=== PATIENT | male | born 1970 | race Caucasian/White ===

== ENCOUNTER 2019-01-02 21:17 | Emergency (ER) | payer OTHER ==
[~2019-01-02] VITALS: Ht 167.6 cm; Wt 102.3 kg
[~2019-01-02 21:17] MED LIST: CIPROFLOXACN500 MG PO; EFFEXOR37.5 MG PO; LEVAQUIN500 MG PO; LEVOTHYROXIN125 MCG PO; LOSARTAN POTASS50 MG PO; MEDDOSEPAK PO; MOTRIN800 MG PO; PERCOCET 5/325M1 TAB PO; PREDNISONE10 MG PO; TAM75CAP PO; VENTOLIN HF1 IN
[2019-01-02 22:16] LABS: HEMATOCRIT 41.5 % (39.0-50.0); HEMOGLOBIN 14.5 g/dl (14.0-18.0); IMMATURE GRANULOCYTES 0.5 % (0.0-5.0); MEAN CELL VOLUME 88.9 fL CALC (80.0-100.0); MEAN CORPUSCULAR HGB CONC 34.9 g/L CALC (32.0-36.0); RED BLOOD COUNT 4.67 mill/uL (4.70-6.10); RED CELL DISTRI WIDTH 12.8 % (11.5-15.5)
[2019-01-02 22:25] LABS: ALBUMIN 4.4 g/dL (3.2-5.0); ALKALINE PHOSPHATASE 57 u/l (38-126); ANION GAP 14 (6-22 (CALC)); BILIRUBIN, TOTAL 0.6 mg/dL (0.0-1.4); BUN 17 mg/dL (9-20); BUN/CREATININE RATIO 18 (12-20 (CALC)); CARBON DIOXIDE 26 mmol/l (22-30); CHLORIDE 104 mmol/l (95-108); CREATININE 0.9 mg/dL (0.7-1.3); GFR > 60 ML/MIN (>=60 (CALC)); GFR FOR AFR.AMER. > 60 ML/MIN (>=60 (CALC)); POTASSIUM 3.6 mmol/l (3.5-5.1); SGOT/AST 47 u/l (17-59); SODIUM 140 mmol/l (137-146); TOTAL PROTEIN 7.6 g/dL (6.3-8.2)
[2019-01-02 22:38] LABS: MYOGLOBIN 69 ng/mL (0 - 121)
[2019-01-02 23:20] LABS: URINE BILIRUBIN - DIPSTICK NEGATIVE (NEGATIVE); URINE BLOOD DIPSTICK NEGATIVE (NEGATIVE); URINE COLOR YELLOW; URINE GLUCOSE - DIPSTICK NEGATIVE (NEGATIVE); URINE KETONE NEGATIVE (NEGATIVE); URINE LEUK ESTERASE NEGATIVE (NEGATIVE); URINE NITRITE - DIPSTICK NEGATIVE (Negative); URINE PH 5.5 (4.5-8.0); URINE PROTEIN - DIPSTICK NEGATIVE (NEG-TRACE)
[2019-01-02 23:22] LABS: BARBITURATES NEGATIVE (NEGATIVE); COCAINE NEGATIVE (NEGATIVE); METHADONE NEGATIVE (NEGATIVE); OXCYCODONE NEGATIVE (NEGATIVE); TETRAHYDROCANNABIONOL NEGATIVE (NEGATIVE); TRICYLIC ANTIDEPRESSANTS NEGATIVE (NEGATIVE)
[2019-01-02 23:30] VITALS: BP 114/75
== END 2019-01-02 23:45 | disposition home or self-care (01) | DRG 310 ==
LOC: ED 21:17
PROVIDERS: Emergency Medicine
DX: R00.2 Palpitations (principal); R07.9 Chest pain, unspecified; E03.9 Hypothyroidism, unspecified; I10 Essential (primary) hypertension

== ENCOUNTER 2019-12-02 17:04 | Inpatient (IN) | payer OTHER ==
[~2019-12-02] VITALS: Ht 167.6 cm; Wt 99.3 kg
[~2019-12-02 17:04] MED LIST changes: +ASPIRIN LOW DOS81 M2 PO; +LEVOTHYROXIN175 MC1 PO; +SYNTHROID175 MCG PO
--- NOTE | 2019-12-02 17:08 | NUR ---
TO ROOM VIA WHEELCHAIR WITH AT SIDE FOR BEDSIDE TRIAGE
--- NOTE | 2019-12-02 17:30 | NUR ---
PT WITH HOB ELEVATED, REPORTS BODY ACHES, FEVER, COUGH, SHORTNESS OF BREATH, DECREASED SENSATION OF SMELL AND TASTE . MONITOR SHOWS SINUS TACH 120'S RESP 28, 02 89-90% RA. DR RANGEL AT BEDSIDE TO EVALUATE PT. SPOUSE AT BEDSIDE. TWO 20G IV'S STARTED IN BILATERAL AC'S. SPECIMENS OBTAINED AND SENT TO LAB FOR ANALAYSIS. WHEEZING NOTED THROUGHOUT LUNGS, NON PRODUCTIVE COUGH ALSO NOTED AT THIS TIME.
--- NOTE | 2019-12-02 18:00 | NUR ---
URINE OBTAINED AND SENT TO LAB FOR ANALYSIS. PT WITH HOB ELEVATED, IVF INFUSING # 20 LEFT AC, SITE WITHOUT REDNESS, SWELLING. MONITOR CONTINUES TO SHOW SINUS TACH. 02 99% ON 02 AT 2L VIA NC.
[2019-12-02 18:09] LABS: IMMATURE GRANULOCYTES 0.8 % (0.0-5.0); MEAN CELL VOLUME 88.4 fL CALC (80.0-100.0); MEAN CORPUSCULAR HGB 30.4 pG CALC (26.0-32.0); MEAN CORPUSCULAR HGB CONC 34.4 g/dL CAL (32.0-36.0); NEUT# 8.49 thou/uL (1.82-7.42); RED BLOOD COUNT 4.38 mill/uL (4.70-6.10); RED CELL DISTRI WIDTH 12.8 % (11.5-15.5)
[2019-12-02 18:11] LABS: HEMATOCRIT 38.7 % (39.0-50.0); HEMOGLOBIN 13.3 g/dl (14.0-18.0)
[2019-12-02 18:24] LABS: ALBUMIN 3.8 g/dL (3.2-5.0); ALKALINE PHOSPHATASE 55 u/l (38-126); ANION GAP 13 (6-22 (CALC)); BILIRUBIN, TOTAL 1.7 mg/dL (0.0-1.4); BUN 13 mg/dL (9-20); BUN/CREATININE RATIO 12 (12-20 (CALC)); CARBON DIOXIDE 24 mmol/l (22-30); CHLORIDE 101 mmol/l (95-108); CREATININE 1.1 mg/dL (0.7-1.3); GFR > 60 ML/MIN (>=60 (CALC)); GFR FOR AFR.AMER. > 60 ML/MIN (>=60 (CALC)); SGOT/AST 41 u/l (17-59); SODIUM 134 mmol/l (137-146); TOTAL PROTEIN 6.8 g/dL (6.3-8.2)
[2019-12-02 18:29] LABS: ACT PARTIAL THROMBO TIME 34.8 SECONDS (20.0-32.5); INTERNATIONAL NORMALIZED RATIO 1.1 RATIO (0.7-1.3); PROTHROMBIN TIME 11.6 SECONDS (9.0-12.5)
[2019-12-02 18:30] LABS: POTASSIUM 3.7 mmol/l (3.5-5.1)
[2019-12-02 18:35] LABS: MYOGLOBIN 148 ng/mL (0 - 121)
[2019-12-02] MEDS ORDERED: LOPRESSOR 550 MG/TAB PO (18:35)
[2019-12-02 18:36] LABS: URINE BLOOD DIPSTICK NEGATIVE (NEGATIVE); URINE GLUCOSE - DIPSTICK 100 mg/dL (NEGATIVE); URINE KETONE TRACE mg/dL (NEGATIVE); URINE LEUK ESTERASE NEGATIVE (NEGATIVE); URINE NITRITE - DIPSTICK NEGATIVE (Negative); URINE PH 5.5 (4.5-8.0); URINE PROTEIN - DIPSTICK >=300 mg/dL (NEG-TRACE); URINE SPECIFIC GRAVITY 1.025; URINE UROBILINOGEN - DIPSTICK >=8.0 E.U./dL (0.2)
[2019-12-02] MEDS ORDERED: IPRATROPIU0.5 MG/3 M IN (18:37)
[2019-12-02 18:39] LABS: URINE BILIRUBIN - DIPSTICK MODERATE (NEGATIVE); URINE COLOR DK. YELLOW
--- NOTE | 2019-12-02 18:54 | NUR ---
IV ABT. STARTED PER MD ORDER.
--- NOTE | 2019-12-02 19:00 | NUR ---
RECEIVED REPORT FROM DAY SHIFT NURSE, IN ROOM INTRODUCED SELF TO PT. NO C/O AT THIS TIME.
[2019-12-02 19:04] LABS: URINE SQUAMOUS EPITHELIAL CELL FEW EPI/hpf (0-FEW)
[2019-12-02] MEDS ORDERED: LOSARTAN POTASS50 MG PO (19:05)
--- NOTE | 2019-12-02 19:36 | NUR ---
Admission Note Report Given to: ARSALAN ALONSO Transported by: Wheelchair X Stretcher Transported with: X Nurse Transporter X Patent IV X O2 X Fashion Director Location: ICU X MS2
--- NOTE | 2019-12-02 19:40 | NUR ---
PT. TAKEN TO [place] FLOOR VIA STRETCHER, NO C/O.
[2019-12-02 19:47] VITALS: BP 115/72
[2019-12-02 23:43] VITALS: BP 109/65
[2019-12-03 04:20] VITALS: BP 102/59
--- NOTE | 2019-12-03 07:23 | NUR ---
RESIDENT WAS ADMITTED TO UNIT LAST LAST EVENING. ASSESSMENT COMPLETED AND NOTED WHEEZING IN UPPER LUNG PATEL AND SOB ON EXERTION THAT IMPROVED DURING THE NIGHT. PT ON 3LNC AND TOLERATING WELL. MEDICATED FOR ELEVATED TEMPT AND PAIN DURING THE NIGHT AND EFFECTIVE TO DECREASE TEMPT AND EASE MUSCLE ACHES. FLUIDS GIVEN AND PT TOLERATED WELL. UP TO BATHROOM WITH NO ASSIST NEEDED. AT BEDSIDE DURING THE NIGHT. CALL LIGHT WITHIN REACH AND BED IN LOWEST POSITION. WILL CONTINUE TO OBSERVE
[2019-12-03 07:48] VITALS: BP 103/67
--- NOTE | 2019-12-03 07:48 | NUR ---
PT RESTING IN BED, NO SIGNS OF DISTRESS NOTED, RESP EVEN AND UNLABORED. PT ALERT AND ORIENTED X3, DISCUSSED POC, AT BEDSIDE. SKIN INTACT, NO EDEMA. PT C/O GENERALIZED PAIN MEDICATED WITH TYLENOL. ASSESSMENT COMPLETED, CALL LIGHT IN REACH,CONTINUE TO MONITOR.
[2019-12-03 10:45] VITALS: BP 108/60
--- NOTE | 2019-12-03 11:32 | NUR ---
PT MEDICATED PER MAR. NO SIGNS OF DISTRESS NOTED, LUNCH TRAY PROVIDED. CALL LIGHT IN REACH,CONTINUE TO MONITOR.
--- NOTE | 2019-12-03 15:00 | NUR ---
PT RESTING IN BED, NO SIGNS OF DISTRESS NOTED, RESP EVEN AND UNLABORED. PT VOICES NO NEEDS OR COMPLAINTS AT THIS TIME, CALL LIGHT IN REACH,CONTINUE TO MONITOR.
[2019-12-03 15:15] VITALS: BP 107/58
--- NOTE | 2019-12-03 16:57 | NUR ---
PT MEDICATED WITH TYLENOL FOR GENERALIZED ACHES. CALL LIGHT IN REACH,CONTINUE TO MONITOR.
[2019-12-03 18:31] VITALS: BP 102/56
--- NOTE | 2019-12-03 19:20 | NUR ---
REPORT FROM BIJAN WOODRUFF. PT NOTED RESTING IN BED WATCHING TV WITH SPOUSE AT BEDSIDE. NO APPARENT DISTRESS NOTED. NETWORK ENGINEERING ADVISOR IN PLACE. IV SITE APPEARS HEALTHY. PT DENIES ANY PAIN OR SOB. NONPRODUCTIVE COUGH NOTED. DISCUSSED POC. PT VERBALIZED UNDERSTANDING. FRESH ICE WATER AND GATORAID PROVIDED. NO OTHER WANTS OR NEEDS. CALL LIGHT WITHIN REACH. WILL CONTINUE TO MONITOR.
--- NOTE | 2019-12-03 21:01 | NUR ---
PT MEDICATED ORDERED. PT ALSO MEDICATED FOR GENERALIZED BODY ACHES WITH PO APAP. IV FLUSHED EASILY AND IV ABT INITIATED. PT DENIES ANY OTHER WANTS OR NEEDS. CALL LIGHT WITHIN REACH. WILL CONTINUE TO MONITOR.
--- NOTE | 2019-12-03 23:14 | NUR ---
PT RESTING IN BED WITH EYES CLOSED. NO APPARENT DISTRESS NOTED. BATTERIES CHANGED IN TELE MONITOR. PT WAKES EASILY. DENIES ANY CURRENT WANTS OR NEEDS. CALL LIGHT WITHIN REACH. WILL CONTINUE TO MONITOR.
[2019-12-04] VITALS (7 sets, daily range): BP systolic 105–119; BP diastolic 62–83
--- NOTE | 2019-12-04 03:57 | NUR ---
PT RESTING IN BED WITH EYES CLOSED. NO APPARENT DISTRESS NOTED. RESPIRATIONS EVEN AND UNLABORED. CALL LIGHT WITHIN REACH. WILL CONTINUE TO MONITOR.
[2019-12-04 06:10] LABS: HEMATOCRIT 33.8 % (39.0-50.0); HEMOGLOBIN 11.5 g/dl (14.0-18.0); IMMATURE GRANULOCYTES 1.7 % (0.0-5.0); MEAN CELL VOLUME 89.7 fL CALC (80.0-100.0); MEAN CORPUSCULAR HGB 30.5 pG CALC (26.0-32.0); NEUT# 5.37 thou/uL (1.82-7.42); RED BLOOD COUNT 3.77 mill/uL (4.70-6.10); RED CELL DISTRI WIDTH 12.7 % (11.5-15.5)
[2019-12-04 06:24] LABS: ALBUMIN 3.1 g/dL (3.2-5.0); ALKALINE PHOSPHATASE 50 u/l (38-126); ANION GAP 11 (6-22 (CALC)); BUN 9 mg/dL (9-20); BUN/CREATININE RATIO 11 (12-20 (CALC)); CARBON DIOXIDE 23 mmol/l (22-30); CHLORIDE 105 mmol/l (95-108); CREATININE 0.8 mg/dL (0.7-1.3); GFR > 60 ML/MIN (>=60 (CALC)); GFR FOR AFR.AMER. > 60 ML/MIN (>=60 (CALC)); POTASSIUM 3.8 mmol/l (3.5-5.1); SGOT/AST 44 u/l (17-59); SODIUM 135 mmol/l (137-146)
[2019-12-04 06:29] LABS: BILIRUBIN, TOTAL 0.9 mg/dL (0.0-1.4)
[2019-12-04 06:49] LABS: C-REACTIVE PROTEIN 24.1 mg/dL (0-0.9)
--- NOTE | 2019-12-04 07:10 | NUR ---
REPORT RECEIVED FROM KACY CLARK.
--- NOTE | 2019-12-04 08:25 | NUR ---
PT RESTING IN SEMI FOWLERS POSITION,A&O X3;VS OBTAINED AND ASSESSMENT COMPLETED;PT DENIES ANY CURRENT PAIN,PAIN SCALE AND REPORTING EDUCATED;RESPIRATIONS EVEN AND UNLABORED,SHALLOW ON O2 @ 1.5L VIA NC.CLEAR/DIMINISHED LUNG SOUNDS NOTED AND NON-PRODUCTIVE COUGH AT TIMES;ABDOMEN DISTENDED/SOFT ON PALPATION AND ACTIVE IN ALL 4 QUADRANTS;STRONG PEDAL PULSES;SKIN INTACT;TELE MONITORING IN PLACE;#20G TO RAC AND #20G TO LAC FLUSHED AND PATENT,BOTH SITES APPEAR HEALTHY;PT RE-EDUCATED ON ISOLATION/DROPLET PRECAUTIONS UNTIL COVID19 RESULTS ARE OBTAINED;PT DENIES ANY ADDITIONAL NEEDS AT THIS TIME AND IS ENCOURAGED TO CALL FOR ASSISTANCE IF NEEDED;FALL PRECAUTIONS IN PLACE WITH BED IN THE LOWEST POSITION AND CALL LIGHT IN REACH;WILL CONTINUE TO MONITOR
--- NOTE | 2019-12-04 11:55 | NUR ---
PT RESTING IN SEMI FOWLERS POSITION;RESPIRATIONS REMAIN EVEN AND UNLABORED,SHALLOW ON O2 @ 1.5L VIA NC;PT DENIES ANY CURRENT PAIN OR NEEDS;SCHEDULED ROBITUSSIN ADMINISTERED AT THIS TIME;TELE MONITORING IN PLACE;X2 IV SITES REMAIN PATENT;PT DENIES ANY ADDITIONAL NEEDS AT THIS TIME;ENCOURAGED TO INCREASE ORAL INTAKE;FALL PRECAUTIONS REMAIN IN PLACE WITH CALL LIGHT IN REACH;WILL CONTINUE TO MONITOR
--- NOTE | 2019-12-04 13:24 | NUR ---
PT MEDICATED WITH PRN TYLENOL 650MG PO FOR BODY ACHES AT THIS TIME;GATORADE PROVIDED PER REQUEST;RESPIRATIONS REMAIN EVEN AND UNLABORED ON O2 @ 1.5L;PT DENIES ANY ADDITIONAL NEEDS;ENCOURAGED TO CALL FOR ASSISTANCE IF NEEDED;CALL LIGHT IN REACH;WILL CONTINUE TO MONITOR
--- NOTE | 2019-12-04 16:10 | NUR ---
PT RESTING IN SEMI FOWLERS POSITION WITH JASON LAMAS AT BEDSIDE OBTAINING VS;RESPIRATIONS REMAIN EVEN AND UNLABORED ON O2 @ 1.5L VIA NC;PT DENIES ANY CURRENT PAIN OR DISCOMFORTS AFTER PRN TYLENOL ADMINISTRATION;IV SITES PATENT TO RAC AND LAC;TELE MONITORING IN PLACE;PT DENIES ANY ADDITIONAL NEEDS AT THIS TIME;ASSESSMENT REMAINS UNCHANGED;ENCOURAGED TO CALL FOR ASSISTANCE IF NEEDED;FALL PRECAUTIONS IN PLACE WITH CALL LIGHT IN REACH;WILL CONTINUE TO MONITOR
--- NOTE | 2019-12-04 17:35 | NUR ---
PT REPORTS HEADACHE AND BODY ACHES RATING 6/10 ON THE PAIN SCALE, PT MEDICATED WITH PRN TYLENOL 650MG PO AT THIS TIME;PT DENIES ANY ADDITIONAL NEEDS AND IS ENCOURAGED TO CALL FOR ASSISTANCE IF NEEDED;CALL LIGHT IN REACH;WILL CONTINUE TO MONITOR
--- NOTE | 2019-12-04 19:00 | NUR ---
RECEIVED REPORT FROM NURSE HARSHIL, PATIENT RESTING IN BED, BREATHING SHALLOW AND UNLABORED, HOOKED TO O2 @ 1.5LPM NC, CALL LIGHT AT REACH.
--- NOTE | 2019-12-04 21:00 | NUR ---
PATIENT ALERT ORIENTED ABLE TO MAKE NEEDS KNOWN, HOOKED TO O2 @ 1.5LPM VIA NC, BREATHING SHALLOW UNLABORED, NOTED TO HAVE NON PRODUCTIVE COUGH, REMAINS ON TELE SR 81, DENIES PAIN AT THIS TIME, LBM 12/02. PATIENT SALINE LOCK ON LAC G20 AND ANOTHER SALINE LOCK G20 BOTH PATENT AND FLUSHES WELL, WILL CONTINUE TO MONITOR CALL LIGHT AT REACH.
--- NOTE | 2019-12-04 23:30 | NUR ---
PATIENT APPEARS TO BE SLEEPIN, REMAINS OM O2 @1.5LPM VIA NC, EVEN UNLABORED RESPIRATION CALL LIGHT AT REACH.
[2019-12-05 03:33] VITALS: BP 91/53
--- NOTE | 2019-12-05 04:56 | NUR ---
PATIENT AWAKE AT THIS TIME, REMAINS ON O2 @ 1.5LPM VIA NC, BREATHING EVEN AND UNLABORED CALL LIGHT AT REACH.
[2019-12-05 05:55] LABS: HEMATOCRIT 34.7 % (39.0-50.0); HEMOGLOBIN 11.6 g/dl (14.0-18.0); IMMATURE GRANULOCYTES 3.5 % (0.0-5.0); MEAN CELL VOLUME 90.1 fL CALC (80.0-100.0); MEAN CORPUSCULAR HGB 30.1 pG CALC (26.0-32.0); MEAN CORPUSCULAR HGB CONC 33.4 g/dL CAL (32.0-36.0); NEUT# 3.42 thou/uL (1.82-7.42); RED BLOOD COUNT 3.85 mill/uL (4.70-6.10); RED CELL DISTRI WIDTH 12.6 % (11.5-15.5)
[2019-12-05 06:25] LABS: ALBUMIN 3.4 g/dL (3.2-5.0); ALKALINE PHOSPHATASE 57 u/l (38-126); ANION GAP 12 (6-22 (CALC)); BILIRUBIN, TOTAL 0.7 mg/dL (0.0-1.4); BUN 10 mg/dL (9-20); BUN/CREATININE RATIO 11 (12-20 (CALC)); CARBON DIOXIDE 26 mmol/l (22-30); CHLORIDE 102 mmol/l (95-108); CREATININE 0.9 mg/dL (0.7-1.3); GFR > 60 ML/MIN (>=60 (CALC)); GFR FOR AFR.AMER. > 60 ML/MIN (>=60 (CALC)); POTASSIUM 3.8 mmol/l (3.5-5.1); SGOT/AST 53 u/l (17-59); SODIUM 137 mmol/l (137-146); TOTAL PROTEIN 6.4 g/dL (6.3-8.2)
[2019-12-05 06:36] LABS: C-REACTIVE PROTEIN 14.9 mg/dL (0-0.9)
[2019-12-05 08:28] VITALS: BP 105/75
--- NOTE | 2019-12-05 08:41 | NUR ---
RECIEVED REPORT FROM GAVIN DA SILVA. PT RESTING IN SEMI FOWLERS POSITION UPON ENTERING ROOM. INTRODUCED SELF TO PT AND DISCUSSED POC. PT IS A/O X3 AND AMBULATORY. ASSESSMENT AND VITALS COMPLETED AT THIS TIME. BP 105/75, HEART RHYTHM IS NORMAL, TELE IN PLACE. O2 96% ON 1.5 NC, RESPIRATIONS ARE EVEN AND UNLABORED, PT DOES REPORT SOB WHEN UP WALKING AROUND BUT NOT WHEN LAYING IN BED. LUNG SOUNDS ARE DIMINISHED. PT DOES HAS A NON PRODUCTIVE COUGH. RADIAL AND PEDAL PULSES ARE STRONG WITH NORMAL CAPILLARY REFILL. BOTH IV FLSUHED, SITES APPEARS HEALTHY AND PATENT. SKIN IS WARMA DN DRY WITH NO BREAK DOWN. PT DENIES ANY PAIN OR DISCOMFORTS AT THIS TIME. ALL SAFTEY PRECAUTIONS IN PLACE WITH CALL LIGHT IN REACH. WILL CONTIUE TO MONITOR.
[2019-12-05 10:44] VITALS: BP 105/65
--- NOTE | 2019-12-05 12:31 | NUR ---
PT RESTING IN SEMI FOWLERS POSITION WITH AT BEDSIDE. RESPIRATIONS ARE EVEN AND UNLABORED. PT INFORMED ON BEING NPO FOR THE NEXT 6 HOURS DUE TO HAVING A COMPLETE ULTRASOUND OF ABDOMEN, PT ONLY ONLY ALLOWED TO HAVE WATER. PT VERBALIZED UNDERSTANDING. PT DENIES ANY PAIN OR DISCOMFORTS AT THIS TIME. ALL SAFETY PRECAUTIONS REMAIN IN PLACE WITH CALL LIGHT IN REACH. WILL CONTINUE TO MONITOR
[2019-12-05 14:30] VITALS: BP 109/72
--- NOTE | 2019-12-05 14:33 | NUR ---
PT GOING TO ULTRASOUND IN STABLE CONDITION VIA WHEELCHAIR ACCOMPAINED BY JASON AUSTIN
--- NOTE | 2019-12-05 15:01 | NUR ---
PT ARRIVED BACK TO MED SURG ROOM 290 VIA WHEELCHAIR. VITALS COMPLETED AT THIS TIME. BP 100/62, HR 88, O2 95% ON 1.5 NC. RESPIRATIONS ARE EVEN AND UNLABORED AT THIS TIME. PT DENIES ANY PAIN OR DISCOMFORTS AT THIS TIME. ALL SAFTEY PRECATUIONS IN PLACE WITH CALL LIGHT IN REACH AND AT BED SIDE. WILL CONTINUE TO [facility]
--- NOTE | 2019-12-05 16:30 | NUR ---
PT RESTING IN SEMI FOWLERS POSITION WATCHING TV. RESPIRATIONS ARE EVEN AND UNLABORED. PT DENIES ANY PAIN OR DISCMFORTS AT THIS TIME. ALL SAFTEY PRECAUTIONS REMAIN IN PLACE WITH CALL LIGHT IN REACH. WILL CONTINUE TO MONITOR
--- NOTE | 2019-12-05 19:00 | NUR ---
RECEIVED REPORT FROM NURSE VALDEZ PATIENT WAS CURRENTLY WATCHING TV, SHALLOW UNLABORED BREATHING HOOKED TO O2 @ 1.5LPM VIA NC, DENIES PAIN OR DISCOMFORTS CALL LIGHT AT REACH.
[2019-12-05 19:13] VITALS: BP 105/64
--- NOTE | 2019-12-05 21:00 | NUR ---
PATIENT ALERT ORIENTED ABLE TO MAKE NEED KNONW,DENIES PAIN OR DISCOMFORT, HOOKED TO O2 @ 1.5LPM VIA NC, EXERTIONAL DYSPNEA NOTED, REMAINS ON TELE SR 83, LBM 12/02, CALL LIGHT AT REACH.
[2019-12-05 23:16] VITALS: BP 110/70
--- NOTE | 2019-12-06 | NUR ---
PATIENT CURRENTLY SITTING ON CHAIR WATCHING TV, BREATHING UNLABORED CALL LIGHT AT REACH.
[2019-12-06 03:43] VITALS: BP 95/64
--- NOTE | 2019-12-06 05:00 | NUR ---
PATIENT AWAKE AT THIS TIME, REMAINS ON O2 @ 1.5LPM VIA NC, SHALLOW UNLABORED BREATHING, TELE IN PLACE, BLOOD DRAWN AT THIS TIME, CALL LIGHT AT REACH.
[2019-12-06 05:38] LABS: HEMOGLOBIN 11.9 g/dl (14.0-18.0); IMMATURE GRANULOCYTES 4.9 % (0.0-5.0); MEAN CELL VOLUME 89.1 fL CALC (80.0-100.0); MEAN CORPUSCULAR HGB 30.3 pG CALC (26.0-32.0); NEUT# 4.7 thou/uL (1.82-7.42); RED BLOOD COUNT 3.93 mill/uL (4.70-6.10); RED CELL DISTRI WIDTH 12.3 % (11.5-15.5)
[2019-12-06 05:56] LABS: ALBUMIN 3.5 g/dL (3.2-5.0); ALKALINE PHOSPHATASE 56 u/l (38-126); ANION GAP 11 (6-22 (CALC)); BILIRUBIN, TOTAL 0.6 mg/dL (0.0-1.4); BUN 13 mg/dL (9-20); BUN/CREATININE RATIO 14 (12-20 (CALC)); C-REACTIVE PROTEIN 5.9 mg/dL (0-0.9); CARBON DIOXIDE 27 mmol/l (22-30); CHLORIDE 102 mmol/l (95-108); CREATININE 0.9 mg/dL (0.7-1.3); GFR > 60 ML/MIN (>=60 (CALC)); GFR FOR AFR.AMER. > 60 ML/MIN (>=60 (CALC)); POTASSIUM 3.9 mmol/l (3.5-5.1); SGOT/AST 63 u/l (17-59); SODIUM 136 mmol/l (137-146); TOTAL PROTEIN 6.5 g/dL (6.3-8.2)
[2019-12-06 09:13] VITALS: BP 111/71
--- NOTE | 2019-12-06 09:26 | NUR ---
RECIEVED REPORT FROM GAVIN DA SILVA. PT RESTING IN SEMI FOWLERS POSITION UPON ENTERING ROOM. ASSESSMENT AND VITALS COMPLETED AT THIS TIME. BP 111/71, HR 92, O2 92% ON 1.5 NC. RESPIRATIONS ARE EVEN AND UNLABORED. LUNG SOUNDS ARE DIMINISHED IN THE UPPER AND MIDDLE LOBES, CLEAR IN LOWER.PT DOES PRESENT WITH NON PRODUCTIVE COUGH.PT INFORMS WRITTER THAT HE DOES GET SOB WHEN UP WALKING AROUND. HEART RHYTHM IS NORMAL, TELE IN PLACE. BOWEL SOUNDS ARE ACTIVE IN ALL QUADRANTS, LAST REPORTED BM 12/06/19. RADIAL AND PEDAL PULSES ARE STRONG WITH [place]ML[place] CAPILLARY REFILL. BOTH IV FLUSHED, SITES APPEAR HEALTHY AND PATENT. PT DENIES ANY OTHER PAIN OR DISCOMFORTS AT THIS TIME. ALL SAFTEY PRECAUTIONS IN PLACE WITH CALL LIGHT IN ERACH. WILL CONTIUE TO MONITOR
--- NOTE | 2019-12-06 10:45 | NUR ---
PT TRANSPORTED TO [facility] IN STABLE CONDITION VIA WHEELCHAIR ACCOMPANIED BY JASON LAMAS.
--- NOTE | 2019-12-06 11:30 | NUR ---
PT RESTING IN SEMI FOWLERS POSITION WATCHING TV. ROBITUSSIN ADMINISTERED AT THIS TIME.RESPIRATIONS ARE EVEN AND UNLABORED. PT DENIES ANY PAIN OR DISCOMFORTS AT THIS TIME. ALL SAFTEY PRECAUTIONS REMAIN IN PLACE. WILL CONTINUE TO MONITOR
[2019-12-06 11:37] VITALS: BP 125/81
--- NOTE | 2019-12-06 16:00 | NUR ---
PT RESTING IN HIGH FOWLERS POSITION UPON ENTERING ROOM. RESPIRATIONS ARE EVEN AND UNLABORED, PT DOES INFORM WRITTER OF SOB WHEN UP MOVING AROUND. OXYGEN INCREASED TO 4L NC BY BORIS ARANGO.PT DENIES ANY OTHER PAINS OR DISCOMFORTS AT THIS TIME. ALL SAFTEY PRECATUIONS REMAIN IN PLACE WITH CALL LIGHT IN REACH. WILL CONTINUE TO MONITOR
[2019-12-06 16:20] VITALS: BP 119/80
--- NOTE | 2019-12-06 19:25 | NUR ---
REPORT FROM ZORAIDA WOODRUFF. PT NOTED SITTING UP IN BED. ALERT AND ORIENTED. PT DENIES ANY PAIN OR DISCOMFORT. NO APPARENT RESPIRATORY DISTRESS NOTED. IV SITES APPEARS HEALTHY. DISCUSSED POC. PT VERBALIZED UNDERSTANDING. NO CURRENT WANTS OR NEEDS AT THIS TIME. CALL LIGHT WITHIN REACH. WILL CONTINUE TO MONITOR.
[2019-12-06 20:11] VITALS: BP 116/67
--- NOTE | 2019-12-06 23:33 | NUR ---
PT RESTING IN BED. NO APPARENT DISTRESS NOTED. CALL LIGHT WITHIN REACH. WILL CONTINUE TO MONITOR.
[2019-12-06 23:40] VITALS: BP 115/69
--- NOTE | 2019-12-07 03:38 | NUR ---
PT RESTING IN BED. NO APPARENT DISTRESS NOTED. CALL LIGHT WITHIN REACH. WILL CONTINUE TO MONITOR.
[2019-12-07 03:40] VITALS: BP 109/71
[2019-12-07 06:28] LABS: HEMATOCRIT 35.6 % (39.0-50.0); HEMOGLOBIN 12.1 g/dl (14.0-18.0); MEAN CELL VOLUME 88.6 fL CALC (80.0-100.0); MEAN CORPUSCULAR HGB 30.1 pG CALC (26.0-32.0); NEUT# 6.13 thou/uL (1.82-7.42); RED BLOOD COUNT 4.02 mill/uL (4.70-6.10); RED CELL DISTRI WIDTH 12.2 % (11.5-15.5)
[2019-12-07 06:43] LABS: ALBUMIN 3.4 g/dL (3.2-5.0); ALKALINE PHOSPHATASE 56 u/l (38-126); ANION GAP 10 (6-22 (CALC)); BILIRUBIN, TOTAL 0.5 mg/dL (0.0-1.4); BUN 11 mg/dL (9-20); BUN/CREATININE RATIO 12 (12-20 (CALC)); CARBON DIOXIDE 29 mmol/l (22-30); CHLORIDE 102 mmol/l (95-108); CREATININE 0.9 mg/dL (0.7-1.3); GFR > 60 ML/MIN (>=60 (CALC)); GFR FOR AFR.AMER. > 60 ML/MIN (>=60 (CALC)); POTASSIUM 3.9 mmol/l (3.5-5.1); SGOT/AST 52 u/l (17-59); SODIUM 137 mmol/l (137-146); TOTAL PROTEIN 6.3 g/dL (6.3-8.2)
--- NOTE | 2019-12-07 06:45 | NUR ---
REPORT RECEIVED FROM AMBER WOODRUFF. CARE ASSUMED.
[2019-12-07 08:00] VITALS: BP 109/72
--- NOTE | 2019-12-07 08:00 | NUR ---
PT RESTING IN BED AWAKE AT THIS TIME. PT IS ALERT AND ORIENTED X3. SHIFT ASSESSMENT COMPLETED AT THIS TIME. IV PATENT X2. PT PLACED ON ROOM AIR IN PREP FOR 6 MIN WALK TEST. SPOUSE AT BEDSIDE. CALL LIGHT IN REACH. WILL CONTINUE TO MONITOR.
--- NOTE | 2019-12-07 08:30 | NUR ---
RT AT BEDSIDE FOR 6MIN WALK TEST.
--- NOTE | 2019-12-07 12:00 | NUR ---
PT SITTING UP IN BED ETING LUNCH. RESP ARE EVEN AND UNLABORED. NO DISTRESS NOTED. CALL LIGHT IN REACH. WILL CONTINUE TO MONITOR.
[2019-12-07 12:05] VITALS: BP 126/72
[2019-12-07] MEDS ORDERED: LEVAQUIN750 MG PO (12:42)
--- NOTE | 2019-12-07 13:05 | NUR ---
IV DC'D X2. TELE DC'D. DISCHARGE INSTRUCTIONS REVIEWED WITH PATIENT. PATIENT VERBALIZED UNDERSTANDING.
--- NOTE | 2019-12-07 13:55 | NUR ---
Discharge instructions given. Patient verbalizes understanding of same. Discharged in stable condition via Wheelchair to Home with family. All belongings sent with pt.
== END 2019-12-07 13:55 | disposition home or self-care (01) | DRG 195 ==
LOC: ED 17:04 → ED-I 18:42 → ED 18:59 → MS2 19:00
PROVIDERS: Nurse Practitioner Family; ADMIT Internal Medicine; ATTEND Internal Medicine
DX: J18.9 Pneumonia, unspecified organism (principal); R09.02 Hypoxemia; I10 Essential (primary) hypertension; E03.9 Hypothyroidism, unspecified; G47.30 Sleep apnea, unspecified; R74.8 Abnormal levels of other serum enzymes; R79.89 Other specified abnormal findings of blood chemistry; Z83.49 Family history of other endocrine, nutritional and metabolic diseases; Z87.01 Personal history of pneumonia (recurrent); Z88.0 Allergy status to penicillin; Z20.828 Contact with and (suspected) exposure to other viral communicable diseases
CPT/HCPCS: J1650; J1956; Q9967

== ENCOUNTER 2021-02-13 10:12 | Emergency (ER) | payer OTHER ==
[~2021-02-13] VITALS: Ht 167.6 cm; Wt 100.0 kg
[~2021-02-13 10:12] MED LIST changes: +IPRATROPIU0.5 MG/3 M IN; +LEVAQUIN750 MG PO; +LOPRESSOR 550 MG/TAB PO
[2021-02-13] MEDS ORDERED: RYBELSUS3 MG PO (10:42)
[2021-02-13 11:23] LABS: HEMOGLOBIN 14.1 g/dl (14.0-18.0); IMMATURE GRANULOCYTES 0.4 % (0.0-5.0); MEAN CELL VOLUME 91.9 fL CALC (80.0-100.0); MEAN CORPUSCULAR HGB 31.6 pG CALC (26.0-32.0); MEAN CORPUSCULAR HGB CONC 34.4 g/dL CAL (32.0-36.0); NEUT# 10.18 thou/uL (1.82-7.42); RED BLOOD COUNT 4.46 mill/uL (4.70-6.10); RED CELL DISTRI WIDTH 12.4 % (11.5-15.5)
[2021-02-13 11:36] LABS: ALBUMIN 4.4 g/dL (3.2-5.0); ALKALINE PHOSPHATASE 46 u/l (38-126); BILIRUBIN, TOTAL 0.7 mg/dL (0.0-1.4); BUN 16 mg/dL (9-20); BUN/CREATININE RATIO 17 (12-20 (CALC)); CARBON DIOXIDE 27 mmol/l (22-30); CHLORIDE 103 mmol/l (95-108); CREATININE 0.9 mg/dL (0.7-1.3); GFR > 60 ML/MIN (>=60 (CALC)); GFR FOR AFR.AMER. > 60 ML/MIN (>=60 (CALC)); LIPASE 80 u/l (23-300); SGOT/AST 43 u/l (17-59); SODIUM 138 mmol/l (137-146); TOTAL PROTEIN 7.5 g/dL (6.3-8.2)
[2021-02-13 11:37] LABS: ANION GAP 12 (6-22 (CALC)); POTASSIUM 3.5 mmol/l (3.5-5.1)
[2021-02-13 11:48] LABS: PROTHROMBIN TIME 10.6 SECONDS (9.0-12.5)
[2021-02-13 11:59] LABS: D-DIMER 0.17 mg/L (0.19-0.60)
[2021-02-13 12:36] LABS: URINE BILIRUBIN - DIPSTICK NEGATIVE (NEGATIVE); URINE BLOOD DIPSTICK NEGATIVE (NEGATIVE); URINE COLOR YELLOW; URINE GLUCOSE - DIPSTICK NEGATIVE (NEGATIVE); URINE KETONE NEGATIVE (NEGATIVE); URINE LEUK ESTERASE NEGATIVE (NEGATIVE); URINE PROTEIN - DIPSTICK NEGATIVE (NEG-TRACE); URINE SPECIFIC GRAVITY 1.025
[2021-02-13 12:38] LABS: URINE NITRITE - DIPSTICK NEGATIVE (Negative)
[2021-02-13] MEDS ORDERED: DECADRON2 MG PO (12:52)
[2021-02-13] MEDS ORDERED: ALBUTEROL SUL0.083 % IN (12:52)
[2021-02-13 13:10] VITALS: BP 120/77
== END 2021-02-13 13:23 | disposition home or self-care (01) | DRG 179 ==
LOC: ED 10:12
DX: U07.1 COVID-19 (principal); J40 Bronchitis, not specified as acute or chronic; I10 Essential (primary) hypertension; E03.9 Hypothyroidism, unspecified; Z87.01 Personal history of pneumonia (recurrent)